=== PATIENT | female | born 1960 | race American Indian/Alaskan Native ===

== ENCOUNTER 2019-02-11 09:30 | Emergency (ER) | payer OTHER ==
[2019-02-11 09:35] VITALS: BMI 25.4
[2019-02-11 09:39] VITALS: BP 125/74; PULSE 85; RESP 18; TEMP 86; O2SAT 100
--- NOTE | 2019-02-11 09:48 | C.PDOC ---
History Of Present Illness 58 y/o female presents to the ER complaining of intermittent headache which has been present for the past 2 weeks. Patient states that pain is mainly on the left side and the pain is worse with change in position. Patient reports that she has nasal congestion. She notes that she takes Claritin occasionally.She uses Flonase spray once per day vertically instead of horizontally. She states that she saw her PMD and neurologist. She was prescribed Imitrex without relief.Denies having fever,chills, nausea,vomiting, and abdominal pain. Time Seen by Provider: 02/11/19 09:41 Chief Complaint (Nursing): Headache History Per: Patient History/Exam Limitations: no limitations Onset/Duration Of Symptoms: Days Current Symptoms Are (Timing): Still Present Severity: Moderate Past Medical History Reviewed: Historical Data, Nursing Documentation, Vital Signs Vital Signs: Last Vital Signs Temp 86 F L 02/11/19 09:35 Pulse 85 02/11/19 09:35 Resp 18 02/11/19 09:35 BP 125/74 02/11/19 09:35 Pulse Ox 100 02/11/19 09:35 Primary Care Provider: Non [facility] Provider, - Medical History PMH: Anemia, Asthma, Bronchitis, HTN, Hypothyroidism, Migraine, Pneumonia (MARCH 2013) Denies: Chronic Kidney Disease Surgical History: Endoscopy Family History: States: No Known Family Hx - Social History Hx Tobacco Use: Yes Hx Alcohol Use: No Hx Substance Use: No - Immunization History Hx Tetanus Toxoid Vaccination: No Hx Influenza Vaccination: No Hx Pneumococcal Vaccination: No Review Of Systems Except As Marked, All Systems Reviewed And Found Negative. Constitutional: Negative for: Fever, Chills ENT: Positive for: Nose Congestion Cardiovascular: Negative for: Chest Pain Respiratory: Negative for: Shortness of Breath Gastrointestinal: Negative for: Nausea, Vomiting, Abdominal Pain Neurological: Positive for: Headache. Negative for: Dizziness Physical Exam - Physical Exam Appears: No Acute Distress, Other (black female, mild distress) Skin: Normal Color, Warm, Dry Head: Atraumatic, Normacephalic Eye(s): bilateral: Normal Inspection, PERRL, EOMI, Other (no photophobia) Ear(s): Bilateral: Normal Nose: Other (moderate to severe nasal passage erythema with kissing turbinates, no nasal discharge) Throat: Normal, No Erythema, No Exudate Neck: Supple Chest: Symmetrical Cardiovascular: Rhythm Regular Respiratory: Normal Breath Sounds, No Rales, No Rhonchi, No Wheezing Gastrointestinal/Abdominal: Normal Exam, Soft, No Tenderness, No Guarding, No Rebound Neurological/Psych: Oriented x3, Normal Speech ED Course And Treatment O2 Sat by Pulse Oximetry: 100 (RA) Pulse Ox Interpretation: Normal Medical Decision Making Medical Decision Making: sinus headaches, NOT migraine ACE's Disposition Doctor Will See Patient In The: Office Counseled Patient/Family Regarding: Studies Performed, Diagnosis - Disposition Referrals: [facility] [Outside] [facility] [place] [Outside] [facility] [Outside] [facility] [Outside] Disposition: HOME/ ROUTINE Disposition Time: 09:48 Condition: GOOD Additional Instructions: Flonase spray 1 spray each nostril every 12 hours spray HORIZONTALLY Claritin 10 mg daily- anti-histamine therapy Psdudafed 30 mg every 6 hours as needed MANY "Sinus" headache preparations contain this or a similiar nasal decongestant medication motrin/Advil 400-600 mg every 6 hours as needed for headache pain Instructions: Sinus Headache (DC) Forms: [facility] (Bulgarian) - Clinical Impression Clinical Impression: Headache - Scribe Statement The provider has reviewed the documentation as recorded by the Siriibe Isi Ojeda Provider Attestation: All medical record entries made by the Scribe were at my direction and personally dictated by me. I have reviewed the chart and agree that the record accurately reflects my personal performance of the history, physical exam, medical decision making, and the department course for this patient. I have also personally directed, reviewed, and agree with the discharge instructions and disposition.
== END 2019-02-11 10:01 | disposition home or self-care (01) ==
LOC: C.ER 09:30
DX: R51 Headache (principal)